=== PATIENT | male | born 1970 | race Caucasian/White ===

== ENCOUNTER 2023-09-07 08:15 | Outpatient (REF) | payer OTHER, SELFPAY ==
--- NOTE | ~2023-09-07 | US_ITS ---
EXAMINATION: US ABDOMEN COMPLETE CLINICAL INFORMATION: Right upper quadrant pain. COMPARISON: None available. TECHNIQUE: Real-time imaging of the abdominal viscera. Limited visualization due to bowel gas. FINDINGS: PANCREAS: Limited visualization of pancreatic tail and head. Imaged portion of pancreatic body is unremarkable. ABDOMINAL AORTA: Nonaneurysmal. INFERIOR VENA CAVA: Visualized portions are normal. LIVER: Borderline hepatomegaly, 15.7 cm. Mild increased hepatic parenchymal heterogeneity and echogenicity which could be associated with hepatocellular disease/hepatic steatosis and substantially limits visualization. GALLBLADDER: No gallstones. Gallbladder wall thickness of 0.27 cm. COMMON BILE DUCT: Normal in caliber measuring 0.3 cm in diameter. RIGHT KIDNEY: Lobulated renal contour difficult to evaluate due to bowel gas. No hydronephrosis. No renal calculi. Limited visualization. The kidney measures 11.5 cm in maximum dimension. LEFT KIDNEY: No hydronephrosis. No renal calculi. Limited visualization. The kidney measures 10.4 cm in maximum dimension. SPLEEN: Normal. The spleen measures 11.8 cm in maximum dimension. FREE FLUID: None. US/US abdomen complete IMPRESSION: 1. Borderline hepatomegaly, 15.7 cm. Mild increased hepatic parenchymal heterogeneity and echogenicity which could be associated with hepatocellular disease/hepatic steatosis and substantially limits visualization. 2. Lobulated right renal contour difficult to evaluate due to bowel gas. CT scan with intravenous contrast recommended for further evaluation.
== END 2023-09-07 08:16 | disposition home or self-care (01) ==
LOC: HO.US 08:15
PROVIDERS: PCP Internal Medicine; Visit Provider Internal Medicine
DX: R10.11 Right upper quadrant pain (principal)
CPT/HCPCS: 76700

== ENCOUNTER 2023-11-02 08:46 | Outpatient (REF) | payer OTHER, SELFPAY ==
--- NOTE | ~2023-11-02 | CT_ITS ---
EXAMINATION: CT ABDOMEN WITHOUT AND WITH CONTRAST CLINICAL INFORMATION: Disorder of kidney and ureter with question of renal malignancy. COMPARISON: Ultrasound abdomen 09/07/2023. TECHNIQUE: Contiguous axial thin section helical images of the abdomen were performed before and after the administration of oral contrast and 85 mL of Omnipaque 350 intravenous contrast. The data set was reformatted in the coronal and sagittal planes and reviewed on an independent workstation. This CT examination was performed using dose optimization techniques as appropriate, variously including the following: *Automated exposure control *Adjustment of mA and/or kV according to patient size (this includes techniques or standardized protocols for targeted exams where dose is matched to indication/reason for exam; i.e. extremities or head) *Use of iterative reconstruction technique DLP: 377 mGy-cm FINDINGS: LUNG BASES: The visualized lung bases are unremarkable. LIVER, GALLBLADDER, AND BILIARY TREE: The liver is normal in size, shape, and attenuation. No focal hepatic lesion or biliary ductal dilatation is present. The gallbladder is unremarkable with no evidence of radiopaque gallstones, gallbladder wall thickening, or obvious pericholecystic inflammatory changes. PANCREAS: Unremarkable. SPLEEN: The spleen is enlarged at 13 cm in greatest transverse dimension. ADRENAL GLANDS: Unremarkable. KIDNEYS AND URETERS: The kidneys are normal in size, shape, and attenuation. No hydronephrosis, hydroureter, or calculi seen. No perinephric stranding. No renal masses are seen. The study is limited as this is not a CT urogram and there is limited filling of the pelvicalyceal systems with IV contrast. GASTROINTESTINAL TRACT: The small and large bowel are unremarkable. The appendix is unremarkable. ABDOMINAL WALL: No significant hernia is appreciated. LYMPH NODES: Normal. VASCULAR: Unremarkable. OSSEOUS STRUCTURES: Unremarkable. CT/CT abdomen wo/w IV con IMPRESSION: 1. No renal masses are seen. The study is limited as this is not a CT urogram and there is limited filling of the pelvicalyceal systems with IV contrast. 2. Incidental note made of mild splenomegaly. Fleischner guidelines were followed.
[2023-11-02] MEDS: iohexoL 350 MG/ML 100 ML INFUS..BTL 85 ML IV (09:49)
[2023-11-03 10:21] LABS: GFR POC > 60
== END 2023-11-02 08:47 | disposition home or self-care (01) ==
LOC: HO.CT 08:46
PROVIDERS: PCP Internal Medicine; Visit Provider Internal Medicine
DX: N28.89 Other specified disorders of kidney and ureter (principal)
CPT/HCPCS: 74170; 82565; Q9967

== ENCOUNTER 2024-02-16 11:00 | Outpatient (AMB) | payer OTHER, SELFPAY ==
--- NOTE | 2024-02-16 11:01 | A.OFFVIS_ITS ---
Intake Visit Reasons: questioning renal mass? Intake Note: NEW Patient presents today for Evaluation: Meds- None Allergies to Antibiotic- No Known Allergies Blood Thinner- None Parenting Skills Instructor Required: No Accompanied by: Self / Same As Patient Allergies No Known Allergies Allergy (Verified 02/16/24 11:09) HPI Comments Details: Peterson is a 53-year-old male who is here for evaluation. In discussion with the patient he had epigastric pain and PCP ordered an ultrasound 08/31/2023, findings described lobulated right kidney. He was sent for a CT abdomen and pelvis with and without IV contrast. I have reviewed CT imaging 11/02/23-kidneys are normal no enhancing lesions no kidney stones. There is no hydroureter hydronephrosis or renal calculi. Urinalysis today is within normal limits leukocytes negative, protein negative, blood negative. The patient complains of left sided back pain he does state that he has had back issues for about 15 years. I have reassured the patient that his pain is not related to the kidneys and more likely musculoskeletal. No follow-up imaging of the kidneys is indicated at this time. [facility] Surgical History Hx of knee surgery Social History Alcohol intake: current Alcohol intake frequency: holidays/special occasions only Patient Tobacco Use Status: Never used Tobacco Review of Systems Const All systems reviewed & are unremarkable except as noted in HPI and below Reports no additional complaints Eyes Reports no additional complaints ENT Reports no additional complaints Card Reports no additional complaints Resp Reports no additional complaints GI Reports no additional complaints Reports as per HPI Musc Reports no additional complaints Skin/Breast Reports system reviewed and no additional complaints, except as documented Neuro Reports no additional complaints Psych Reports no additional complaints Endo Reports no additional complaints Rashid/Lymph Reports no additional complaints Aller/Immun Reports no additional complaints Physical Exam Const General: healthy appearing, no acute distress and well developed Orientation/consciousness: patient oriented x3 HEENT Head: Yes normocephalic and Yes atraumatic Eyes Conjunctivae: conjunctivae normal Neck Neck: Yes normal visual inspection Chest Chest palpation & inspection: normal inspection of the chest Resp Effort & Inspection: normal respiratory effort Cardio Rate: regular rate GI Inspection: Yes normal to inspection Back/Spine/Pelvis Other: Mild tenderness along left paraspinal area. Skin General skin exam: no rashes or lesions noted Neuro General: patient oriented x3 Extrem General: No pedal edema Psych Appearance: grossly normal Affect: normal affect Results Reviewed Results Reviewed: Date of Service: 11/02/23 CT ABDOMEN WITHOUT AND WITH CONTRAST CLINICAL INFORMATION: Disorder of kidney and ureter with question of renal malignancy. COMPARISON: Ultrasound abdomen 09/07/2023. FINDINGS: LUNG BASES: The visualized lung bases are unremarkable. LIVER, GALLBLADDER, AND BILIARY TREE: The liver is normal in size, shape, and attenuation. No focal hepatic lesion or biliary ductal dilatation is present. The gallbladder is unremarkable with no evidence of radiopaque gallstones, gallbladder wall thickening, or obvious pericholecystic inflammatory changes. PANCREAS: Unremarkable. SPLEEN: The spleen is enlarged at 13 cm in greatest transverse dimension. ADRENAL GLANDS: Unremarkable. KIDNEYS AND URETERS: The kidneys are normal in size, shape, and attenuation. No hydronephrosis, hydroureter, or calculi seen. No perinephric stranding. No renal masses are seen. The study is limited as this is not a CT urogram and there is limited filling of the pelvicalyceal systems with IV contrast. GASTROINTESTINAL TRACT: The small and large bowel are unremarkable. The appendix is unremarkable. ABDOMINAL WALL: No significant hernia is appreciated. LYMPH NODES: Normal. VASCULAR: Unremarkable. OSSEOUS STRUCTURES: Unremarkable. IMPRESSION: 1. No renal masses are seen. The study is limited as this is not a CT urogram and there is limited filling of the pelvicalyceal systems with IV contrast. 2. Incidental note made of mild splenomegaly. Date of Service: 09/07/23 EXAMINATION: US ABDOMEN COMPLETE CLINICAL INFORMATION: Right upper quadrant pain. COMPARISON: None available. TECHNIQUE: Real-time imaging of the abdominal viscera. Limited visualization due to bowel gas. FINDINGS: PANCREAS: Limited visualization of pancreatic tail and head. Imaged portion of pancreatic body is unremarkable. ABDOMINAL AORTA: Nonaneurysmal. INFERIOR VENA CAVA: Visualized portions are normal. LIVER: Borderline hepatomegaly, 15.7 cm. Mild increased hepatic parenchymal heterogeneity and echogenicity which could be associated with hepatocellular disease/hepatic steatosis and substantially limits visualization. GALLBLADDER: No gallstones. Gallbladder wall thickness of 0.27 cm. COMMON BILE DUCT: Normal in caliber measuring 0.3 cm in diameter. RIGHT KIDNEY: Lobulated renal contour difficult to evaluate due to bowel gas. No hydronephrosis. No renal calculi. Limited visualization. The kidney measures 11.5 cm in maximum dimension. LEFT KIDNEY: No hydronephrosis. No renal calculi. Limited visualization. The kidney measures 10.4 cm in maximum dimension. SPLEEN: Normal. The spleen measures 11.8 cm in maximum dimension. FREE FLUID: None. IMPRESSION: 1. Borderline hepatomegaly, 15.7 cm. Mild increased hepatic parenchymal heterogeneity and echogenicity which could be associated with hepatocellular disease/hepatic steatosis and substantially limits visualization. 2. Lobulated right renal contour difficult to evaluate due to bowel gas. CT scan with intravenous contrast recommended for further evaluation. Assessment & Plan Assessment & Plan (1) Abnormal ultrasound of kidney: Comment: 09/07/23-ultrasound lobulated right kidney. Follow-up evaluation with CT abdomen with and without IV contrast 11/02/2023 bilateral kidneys normal in size shape and attenuation no hydronephrosis hydroureter or calculi, no renal masses. Code(s): R93.429 - Abnormal radiologic findings on diagnostic imaging of unspecified kidney Category: Medical Plan FU prn Patient Instructions: The patient had an opportunity to ask questions regarding treatment plan. The p atient expressed understanding and agreement with the above treatment plan. The patient is aware they should contact our office by phone for worsening of their current condition or the appearance of new symptoms. Compliance is encouraged with any medications and followup testing that is ordered. It is a privilege to be allowed the opportunity to participate in the urologic care of your patient. If you have any questions or concerns regarding treatment for the above conditions please do not hesitate to contact me. The office telephone contact is [phone]. This note is constructed in part using voice recognition software. While every effort has been made to ensure accuracy hospital monitor errors may have been included. Yours sincerely, Byron Ragland MD Coding Level of Care Code New Pt Level 4 (29586) Diagnoses Abnormal ultrasound of kidney R93.429
== END 2024-02-16 11:26 | disposition home or self-care (01) ==
PROVIDERS: PCP Internal Medicine; Visit Provider Urology
DX: R93.429 Abnormal radiologic findings on diagnostic imaging of unspecified kidney (principal)
CPT/HCPCS: 99204

== ENCOUNTER → 2024-02-16 11:00 | Outpatient (BNVA) | payer OTHER, SELFPAY | PROVIDERS: PCP Internal Medicine; Visit Provider Urology ==